=== PATIENT | female | born 1985 | race Caucasian/White ===

== ENCOUNTER 2017-06-20 04:54 | Day surgery (SDC) | payer OTHER ==
[2017-06-13 12:32] VITALS: BMI 24.2
--- NOTE | 2017-06-20 09:24 | HP ---
Satellite [facility] - Chief Complaint Chief Complaint: right wrist mass - Past Medical History Allergies/Adverse Reactions: Allergies Allergy/AdvReac Type Severity Reaction Status Date / Time No Known Allergies Allergy Verified 06/13/17 13:23 ...LMP: 06/07/17 ...LMP Comment: REGULAR - Current Medications Current Medications: Home Medications Medication Instructions Recorded No Known Home Medication 06/13/17 Hydrocodone/Acetaminophen [[place] 1 each PO Q6H PRN #40 tablet MDD 4 06/20/17 5-325 Tablet] Satellite Physical Exam - Physical Examination General Appearance: Well Nourished, Well Developed, Alert & Oriented x3 ENT: Clear Lung: Normal air movement Heart: Regular rate & rhythm Extremities: Other (right wrist- + mass, nvi) Neurological: Intact, Alert, Oriented Satellite Impression/Plan - Impression/Plan Impression: right wrist ganglion cyst Operative Procedure: right wrist ganglion cyst excision Date to be Performed: 06/20/17
[2017-06-20 11:13] VITALS: TEMP 98.3
[2017-06-20] MEDS ORDERED: MIDAZOLAM HCL 2 MG/2 ML SINGLE DOSE VIAL ONE ×2 (12:08)
[2017-06-20] MEDS ORDERED: PROPOFOL 20 ML ONE (12:08)
[2017-06-20] MEDS ORDERED: ceFAZolin SODIUM 1 GM VIAL IVPB ONE (12:15)
[2017-06-20] MEDS ORDERED: ceFAZolin SODIUM 1 GM VIAL ONE (12:16)
[2017-06-20] MEDS ORDERED: LIDOCAINE HCL/PF 2% SDV 5ML VIAL ONE (12:16)
[2017-06-20] MEDS ORDERED: LIDOCAINE HCL 1%, 10 MG/ML (20ML VIAL) IJ ONE ×2 (12:22)
[2017-06-20] MEDS ORDERED: BUPIVACAINE HCL/PF 0.5% (5MG/ML) 10 ML VIAL IJ ONE ×2 (12:22)
[2017-06-20] MEDS ORDERED: DEXAMETHASONE SOD PHOSPHATE 4 MG/1 ML VIAL ONE (12:35)
[2017-06-20] MEDS ORDERED: KETOROLAC TROMETHAMINE 30 MG/1 ML VIAL ONE (12:35)
--- NOTE | 2017-06-20 12:43 | OP ---
Operative Note - Note: Operative Date: 06/20/17 Pre-Operative Diagnosis: mass right hand Operation: excision mass right hand Post-Operative Diagnosis: Same as Pre-op Surgeon: Beau Cheng Anesthesiologist/CULINARY ARTIST: Ashley Bourgeois Anesthesia: General, Local Specimens Removed: mass right hand, and tenosynovium Estimated Blood Loss (mls): 0 Blood Volume Replaced (mls): 0 Fluid Volume Replaced (mls): 500 Operative Report Dictated: Yes
[2017-06-20 15:47] VITALS: BP 125/72; PULSE 68
--- NOTE | 2017-06-21 00:22 | OP ---
DATE OF OPERATION: 06/20/2017 PREOPERATIVE DIAGNOSIS: Mass, right hand. POSTOPERATIVE DIAGNOSIS: Mass, right hand. Likely ganglion cyst. PROCEDURE: Excision mass, right hand. SURGEON: Beau Aguilar M.D. SYSTEMS ADMINISTRATION ANALYST: None. ANESTHESIOLOGIST: Ashley Bourgeois M.D. ANESTHESIA: MAC anesthesia, local injection of 8 mL 0.5% Marcaine, 1% lidocaine mix. DRAINS: None. COMPLICATIONS: None. SPECIMEN: Mass right hand, likely ganglion cyst. BLOOD LOSS: None. BLOOD GIVEN: None. FLUID REPLACEMENT: 500 mL. INDICATION: The patient is a 31-year-old female with a preoperative diagnosis of a mass on the dorsal aspect of her right hand. After understanding the potential risks, complications, alternatives, benefits to surgery versus nonsurgical treatment, the patient elected to pursue this procedure. DESCRIPTION OF PROCEDURE: Patient brought to operating room, peripheral IV placed, IV sedation given, 1 g of IV Ancef was given, MAC anesthesia was induced. Right upper extremity was prepped and draped in the sterile fashion. A longitudinal incision was marked out over a mass on the dorsal aspect of the right hand, taking great care to avoid all crossing neurovascular structures. Then 8 mL 0.5% Marcaine, 1% lidocaine mix was injected in and around the surgical incision. The right upper extremity was elevated, exsanguinated with Esmarch bandage, tourniquet inflated to 250 mmHg. A longitudinal incision was made with the number 15 scalpel blade. Subcutaneous hemostasis achieved with bipolar cautery. Dissection done with a Littler scissors. There was a very superficial mass coming up dorsal through the extensor tendons but its stalk was identified going down to the dorsal wrist capsule between the extensor tendons. An Allis clamp was placed onto the mass. The stalk put under tension and it was decapitated at its base and cauterized. Some tenosynovium was removed as well. The area was copiously irrigated and washed out. I did not feel or see any other abnormal tissue. The deep dermal layer was closed with 4-0 undyed Vicryl. Final skin reapproximation was done with a running subcuticular 4-0 Biosyn. Area was washed and dried, covered with Steri-Strips, 4x4s, fluff between the fingers, Webril and Coban. The tourniquet was taken down after total tourniquet time of 14 minutes. There were no complications during the case. The patient tolerated the procedure well, was brought to the ambulatory recovery in table condition. BEAU AGUILAR M.D. [id number]
--- NOTE | 2017-06-21 16:31 | PATH ---
Surgical Pathology Report Patient Name: DEBRA CASTELLANO [facility]. Rec. #: [id number] /Age/Gender: 1985 (Age: 31) / F Account: [id number] Location: [facility] SURGICAL Taken: 06/20/2017 Received: 06/20/2017 Reported: 06/21/2017 Physicians: Beau Cheng M.D. Specimen(s) Received MASS OF RIGHT HAND Clinical History Mass right hand Final Diagnosis SOFT TISSUE, RIGHT HAND, MASS, EXCISION: BENIGN TENOSYNOVIAL TISSUE WITH CYSTIC SPACE WITHOUT DEFINED LINING AND MYXOID CHANGE CONSISTENT WITH GANGLION CYST. Electronically Signed Urban Boyle M.D. Gross Description Received in formalin labeled "mass right hand" is a 1.5 x 1.0 x 0.3 cm lebron, irregular portion of soft tissue. The specimen is submitted in toto in one cassette. 06/20/201706/20/2017
== END 2017-06-20 15:48 | disposition home or self-care (01) ==
LOC: JASU-SURG 04:54
PROVIDERS: ATTEND Orthopaedic Surgery
PROC: 0LB70ZZ Excision of Right Hand Tendon, Open Approach (ICD-10-PCS; principal; 2017-06-20 12:00)
DX: M67.441 Ganglion, right hand (principal)
CPT/HCPCS: 84703; 88304-TC

== ENCOUNTER 2017-07-21 09:36 | Emergency (ER) | payer OTHER ==
[2017-07-21 09:43] VITALS: BP 131/68; PULSE 84; TEMP 98; BMI 24.9
[2017-07-21] MEDS ORDERED: IBUPROFEN 400 MG TABLET (FP) PO ONE ×2 (11:18→11:20)
--- NOTE | 2017-07-21 11:18 | PDOC ---
History of Present Illness - General Chief Complaint: Laceration Stated Complaint: FOLLOW UP Time Seen by Provider: 07/21/17 10:43 History Source: Patient Exam Limitations: No Limitations - History of Present Illness Initial Comments: 07/21/17 13:28 My Chief Complaint: rt hand open area History of Present Illness: Pt Is a 31-year-old female with no significant medical history except for having surgical repair of ganglion cyst on [address] Cheng to her right dorsal hand and wrist area. Patient reports that a suture line had totally closed approximately 07/09/2017. 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 Patient reports that have been irritating her hand and wrist at suture line. Patient denies any numbness of her hand or wrist or forearm. works here as a oil burner. 07/21/17 13:34 Timing/Duration: getting worse Severity: moderate Associated Symptoms: reports: denies symptoms Past History - Past Medical History Allergies/Adverse Reactions: Allergies Allergy/AdvReac Type Severity Reaction Status Date / Time No Known Allergies Allergy Verified 07/21/17 09:41 Home Medications: Ambulatory Orders Sulfamethoxazole/Trimethoprim [Bactrim DS -] 1 tab PO BID #13 tablet 07/21/17 Anemia: No Asthma: No Cancer: No Cardiac Disorders: No CVA: No COPD: No CHF: No Dementia: No Diabetes: No GI Disorders: No Disorders: No HTN: No Hypercholesterolemia: No Liver Disease: No Seizures: No Thyroid Disease: No Other medical history: none - Surgical History Abdominal Surgery: No Appendectomy: No Cardiac Surgery: No Cholecystectomy: No Lung Surgery: No Neurologic Surgery: No Orthopedic Surgery: No - Psycho/Social/Smoking Cessation Hx Anxiety: No Suicidal Ideation: No Smoking History: Never smoked Have you smoked in the past 12 months: No Number of Cigarettes Smoked Daily: 0 Information on smoking cessation initiated: No Hx Alcohol Use: No Drug/Substance Use Hx: No Substance Use Type: None Hx Substance Use Treatment: No Review of Systems - Review of Systems Able to Perform ROS?: Yes Constitutional: No: Symptoms Reported HEENTM: No: Symptoms Reported Respiratory: No: Symptoms reported Cardiac (ROS): No: Symptoms Reported ABD/GI: No: Symptoms Reported Musculoskeletal: No: Symptoms Reported Integumentary: Yes: Other (rt. dorsal proximal mid hand tender, slightly raised with pustule on operative site drained today with tiny open area ) Neurological: No: Symptoms reported *Physical Exam - Vital Signs Last Vital Signs Temp Pulse Resp BP Pulse Ox 98.0 F 84 18 131/68 100 07/21/17 09:41 07/21/17 09:41 07/21/17 09:41 07/21/17 09:41 07/21/17 09:41 - Physical Exam General Appearance: Yes: Appropriately Dressed Respiratory/Chest: positive: Lungs Clear, Normal Breath Sounds. negative: Chest Tender, Respiratory Distress Cardiovascular: positive: Regular Rhythm, Regular Rate, S1, S2 Comments:: 07/21/17 11:18 radial pulse rt. 2 + Integumentary: positive: Other (scar tissure rt. dorsal proximal hand wrist tiny open area, tender, slightly raised with minimal erythema ) Neurologic: positive: Normal Response, Respond to painful stimul (rt. hand/ wrist ), Responsive, Other (negative tinel, phalen rt. ). negative: Numbness, Sensory Deficit (rt.hand/wrist ) Procedures - Consent Consent obtained: From Patient - Additional Procedures Progress: 07/21/17 13:37 07/21/17 13:38 cleanse area with betadine / NS 0.9 % than applied bandaid Medical Decision Making - Medical Decision Making 07/21/17 13:34 07/21/17 13:35 Pt Is a 31-year-old female with no significant medical history except for having surgical repair of ganglion cyst on 06/20/[address] Cheng to her right dorsal hand and wrist area. Patient reports that a suture line had totally closed approximately 07/09/2017. 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 Patient reports that have been irritating her hand and wrist at suture line. Patient denies any numbness of her hand or wrist or forearm. works here as a oil burner. rt. dorsal hand/wrist open area PLAN: wound C & S bactrim DS 1 tab now than bid for 7 days cleanse area with betadine / NS 0.9 % than applied bandaid follow up with Dr. Cheng on 07/24/17 07/21/17 13:37 *DC/Admit/Observation/Transfer Diagnosis at time of Disposition: Wound, surgical, infected Qualifiers: Encounter type: initial encounter Qualified Code(s): T81.4XXA - Infection following a procedure, initial encounter - Discharge Dispostion Disposition: HOME Condition at time of disposition: Stable - Prescriptions Prescriptions: Sulfamethoxazole/Trimethoprim [Bactrim DS -] 1 tab PO BID #13 tablet - Referrals Referrals: Beau Cheng MD [Staff Physician] - - Patient Instructions Additional Instructions: cleanse wound with antibacterial soap and apply tiny amount of bacitracin ointment cover with dressing during the day and let air out at night Follow up with Dr. Cheng on 07/24/17 Return to emergency room is symptoms worsen fever, increased redness, swelling take ibuprofen as needed as directed by manfacturer patient voiced understanding of discharge instructions and all questions were answered - Post Discharge Activity Work/School Note: Back to Work
[2017-07-21] MEDS ORDERED: SULFAMETHOXAZOLE/TRIMETHOPRIM 800MG/160MG D.S. TABLET PO ONE (11:19)
[2017-07-21] MEDS ORDERED: SULFAMETHOXAZOLE/TRIMETHOPRIM 800MG/160MG D.S. TABLET ONE (11:19)
== END 2017-07-21 11:35 | disposition home or self-care (01) ==
LOC: JERFT 09:36
DX: T81.4XXA Infection following a procedure, initial encounter (principal); B99.8 Other infectious disease; Y83.8 Other surgical procedures as the cause of abnormal reaction of the patient, or of later complication, without mention of misadventure at the time of the procedure; Y92.038 Other place in apartment as the place of occurrence of the external cause
CPT/HCPCS: 87070; 87186; 87205; 99281-25

== ENCOUNTER 2018-05-04 21:28 | Inpatient (IN) | payer OTHER ==
[2018-05-04] MEDS ORDERED: DEXTROSE 5%-LACTATED RINGERS 1,000 ML IV SCH (22:45)
[2018-05-04] MEDS ORDERED: DINOPROSTONE 10 MG VAGINAL SUPPOSITORY VG ONE (23:00)
[2018-05-04 23:11] LABS: BASO % 0.3 % (0-2.0); EOS % 0.6 % (0-4.5); HEMOGLOBIN 11.9 GM/dL (10.7-15.3); LYMPH % 19.5 % (8-40); MCH 30.6 pg (25.7-33.7); MCHC 33.9 g/dl (32.0-36.0); MEAN PLT VOLUME 9.5 fl (7.5-11.1); MONO % 6.9 % (3.8-10.2); NEUT % 72.7 % (42.8-82.8); PLATELET COUNT 182 K/MM3 (134-434); RBC 3.88 M/mm3 (3.60-5.2); RDW 14.9 % (11.6-15.6); WHITE BLOOD COUNT 8.2 K/mm3 (4.0-10.0)
[2018-05-04 23:25] LABS: INR 0.99 (0.82-1.09); PROTHROMBIN TIME (PATIENT) 11.2 SEC (9.7-13.0)
[2018-05-04 23:28] LABS: ACTIVATED PTT 29.2 SECONDS (25.2-36.5)
[2018-05-04 23:32] LABS: ANION GAP 8 (8-16); BLOOD UREA NITROGEN 11 mg/dL (7-18); CALCIUM 8.2 mg/dL (8.5-10.1); CHLORIDE 107 mmol/L (98-107); CO2 24 mmol/L (21-32); CREATININE 0.8 mg/dL (0.55-1.02); GLUCOSE,RANDOM 99 mg/dL (74-106); POTASSIUM 3.7 mmol/L (3.5-5.1); SODIUM 139 mmol/L (136-145)
[2018-05-04 23:35] VITALS: BMI 28.1
--- NOTE | 2018-05-05 02:10 | HP ---
Past Medical History - Admission Chief Complaint: 32 y/o female lmp 08/04/17 ga 39.0 weeks presented to labor and delivery c/o spontaneous rupture of membranes History of Present Illness: her anitepartum course has been unremarkable History Source: Patient Limitations to Obtaining History: No Limitations - Past Medical History MANAGER ESTATE: No: Alzheimer's, CVA, Dementia, Migraine, Multiple Sclerosis, Peripheral Neuropathy, Parkinson's, Seizure, Syncope, TIA, Vertigo, Other Cardiovascular: No: AFIB, Aneurysm, Aortic Insufficiency, Aortic Stenosis, CAD, CHF, Deep Vein Thrombosis, HTN, Hyperlipdemia, MT, Mitral Insufficiency, Mitral Stenosis, Murmur, Pulmonary Hypertension, Other Pulmonary: No: Asthma, Bronchitis, Cancer, COPD, O2 Dependent, Pneumonia, Previously Intubated, Pulmonary Embolus, Pulmonary Fibrosis, Sleep Apnea, Other Gastrointestinal: No: Ascites, Cancer, Constipation, Crohn's Disease, Diverticulitis, Diverticulosis, Esophageal Varices, Gastritis, GERD, GI Bleed, Hemorrhoids, Hiatal Hernia, Inflamatory Bowel Disease, Irritable Bowel Disease, Pancreatitis, Peptic Ulcer Disease, Ulcerative Colitis, Other Hepatobiliary: No: Cirrhosis, Cholelithiasis, Cholecystitis, Choledocholithiasis , Hepatitis A, Hepatitis B, Hepatitis C, Other Renal/: No: Renal Failure, Renal Inusuff, BPH, Cancer, Hematuria, Hemodialysis , Neurogenic Bladder, Renal Calculi, UTI, Other Reproductive: No: Ectopic , Endometriosis, Fibroids, PID, Polycystic Ovary Syndrome, Postmenopausal, Other ...: 1 ...Para: 0 ...Term: 0 ...: 0 ...Spon : 0 ...Induced : 0 ...Multiple Gestation: 0 ...LMP: 08/04/17 ... Weeks Gestation by Dates: 39.0 ...EDC by Dates: 05/11/18 ...EDC by Sono: 05/11/18 Heme/Onc: No: Anemia, B12 Deficiency, Bleeding Disorder, Cancer, Current Chemotherapy, Current Radiation Therapy, Hemochromatosis, Hypercoaguable State, Myeloproliferative Synd, Sickle Cell Disease, Sickle Cell Trait, Thrombocytopenia, Other Infectious Disease: No: AIDS, C-Diff, Herpes Zoster, HIV, MRSA, STD's, Tuberculosis, VREF, Other Psych: No: Addictions, Anxiety, Bipolar, Depression, Panic, Psychosis, Schizophrenia, Other Musculoskeletal: No: Bursitis, Chronic low back pain, Hemiparesis, Hemiplegia, Osteoarthritis, Paraplegia, Other Rheumatology: No: Fibromyalgia, Gout, Lupus, Rheumatoid Arthritis, Sarcoidosis, Vasculitis, Other ENT: No: Allergic Rhinitis, Sinusitis, Other Endocrine: No: [place]'s Disease, Ning's Disease, Diabetes Insipidus, Diabetes Mellitus, Hyperparathyroidism, Hyperthyroidism, Hypothyroidism, Osteopenia, SIADH, Other Dermatology: No: Basal Cell, Cellulitis, Eczema, Melanoma, Psoriasis, Squamous Cell, Other - Past Surgical History Past Surgical History: No: None, AAA Repair, AICD, Amputation, Appendectomy, Arthrosocopy, AV Fistula/Graft, Bariatric Surgery, Breast Biopsy, Bypass, CABG, Carotid Endarterectomy, Cataract Removal, Cholecystectomy, Colectomy, Colonoscopy, Colostomy, Craniotomy, , Cystectomy, Hernia Repair, Hysterectomy, Ileal Conduit, Ileosotomy, Joint Replacement, Kidney Transplant, Laminectomy, Liver Transplant, Mastectomy, Nephrectomy, Oopherectomy, Orchiectomy, Permanent Pacemaker, Prostatectomy, Splenectomy, Stent, Thoracotomy , TURP, Tonsillectomy, Tubal Ligation, Upper Endoscopy, Valve Replacement, Vasectomy, Vein Stripping/Ligation Hx Myomectomy: No Hx Transabdominal Cerclage: No - Smoking History Smoking history: Never smoked Have you smoked in the past 12 months: No Aproximately how many cigarettes per day: 0 - Alcohol/Substance Use Hx Alcohol Use: No Home Medications - Allergies Allergies/Adverse Reactions: Allergies Allergy/AdvReac Type Severity Reaction Status Date / Time No Known Allergies Allergy Verified 07/21/17 09:41 - Home Medications Home Medications: Ambulatory Orders Pnv 29-1 Tablet 1 tab PO DAILY 05/04/18 Family Disease History - Family Disease History Family History: Unremarkable Review of Systems - Review of Systems Constitutional: denies: No Symptoms, Chills, Diaphoresis, Fever, Lethargy, Loss of Appetite, Malaise, Night Sweats, Unintentional Wgt. Loss, Weakness, Other Eyes: denies: No Symptoms, Blind Spots, Blurred Vision, Double Vision, Eye Pain , Floaters, Photophobia, Recent Change in Vision, Other HENT: denies: No Symptoms, Difficult Swallowing, Ear Discharge, Ear Pain, Epistaxis, Gingival Bleeding, Hearing Loss, Mouth Swelling, Nasal Congestion, Ocular Prosthesis, Throat Pain, Toothache, Ringing in Ears, Other Neck: denies: No Symptoms, Decreased ROM, Lumps, Pain on Movement, Stiffness, Swollen Glands, Tenderness, Other Cardiovascular: denies: No Symptoms, Chest Pain, Edema, Palpitations, Shortness of Breath, Other Respiratory: denies: No Symptoms, Cough, Exercise Intolerance, Hemoptysis, Orthopnea, PND, Snoring, SOB, SOB on Exertion, Wheezing, Other Gastrointestinal: denies: No Symptoms, Abdominal Pain, Bloating, Constipation, Diarrhea, Dysphagia, Indigestion, Melena, Nausea, Rectal Bleeding, Vomiting, Vomiting Blood, Other Genitourinary: denies: No Symptoms, Burning, Discharge, Dysuria, Flank Pain, Frequency, Hematuria, Incontinence, Lesions, Menses, Pain, Testicular Mass, Testicular Pain, Testicular Swelling, Urgency, Vaginal Bleeding, Other Breasts: denies: No Symptoms Reported, See HPI, Breast Implants, Discharge from Nipple, Lumps, Pain, Skin Changes, Other Musculoskeletal: denies: No Symptoms, Back Pain, Crepitus, Decreased ROM, Extremity Pain, Joint Pain, Joint Swelling, Muscle Pain, Muscle Cramps, Muscle Weakness, Other Integumentary: denies: No Symptoms, Blister, Bruising, Change in Color, Eczema, Erythema, Incision, Lesions, Lump, Pallor, Pruritis, Rash, Wound, Other Endocrine: denies: No Symptoms, Excessive Sweating, Flushing, Increased Hunger, Increased Thirst, Intolerance to Cold, Intolerance to Heat, Unexplained Weight Gain, Unexplained Weight Loss, Other Hematology/Lymphatic: denies: No Symptoms, Easily Bruised, Excessive Bleeding, Swollen Glands, Other Psychiatric: denies: No Symptoms, Altered Sleep Pattern, Anxiety, Depression, Hallucinations, Panic, Paranoia, Suicidal, Other Physical Exam - Maternity Vital Signs: Vital Signs Temperature 98.3 F 05/05/18 00:00 Pulse Rate 70 05/05/18 00:00 Respiratory Rate 20 05/05/18 00:00 Blood Pressure 118/80 05/05/18 00:00 O2 Sat by Pulse Oximetry (%) Constitutional: Yes: Well Nourished, No Distress, Calm Eyes: Yes: WNL, Conjunctiva Clear HENT: Yes: WNL, Normocephalic Neck: Yes: WNL, Supple Cardiovascular: Yes: WNL, Regular Rate and Rhythm Lungs: Clear to auscultation Breast(s): Yes: WNL - Abdominal Exam/OB Number of Fetuses: Single Presentation: Vertex Contractions: Yes Regularity: Regular Intensity: Moderate Monitor Mode: External Heart Rate Location: [facility] Category: I Accelerations: Uniform Decelerations: None - Vaginal Exam/OB Vaginal Bleediing: No Speculum Exam: No Dilatation (cm): ft Effacement (%): 50% Amniotic Membrane Status: Ruptured Amniotic Fluid: Yes: Clear Presentation: Vertex/Position Station: -3 - Physical Exam Musculoskeletal: Yes: WNL Extremities: Yes: WNL Integumentary: Yes: WNL Deep Tendon Reflex Grade: Normal +2 ...Motor Strength: WNL Psychiatric: Yes: WNL - Labs Lab Results: CBC, BMP 05/04/18 22:50 05/04/18 22:50 Assessment/Plan iup at [facility] with ruptured amniotic membranes plan admission to the labor floor and assist with labo cervidil inserted continue maternal monitoring
[2018-05-05] MEDS ORDERED: ELECTROLYTE-148 SOLN 1,000 ML IV SCH (05:00)
[2018-05-05] MEDS ORDERED: FENTANYL/BUPIVACAINE/NS/PF - PCEA - 50 ML DISP.SYRIN EP ONE ×2 (05:08→09:20)
[2018-05-05] MEDS ORDERED: NALOXONE HCL 0.4 MG/ML VIAL IVPUSH PRN (05:41)
[2018-05-05] MEDS ORDERED: FENTANYL/BUPIVACAINE/NS/PF - PCEA - 50 ML DISP.SYRIN EP SCH (05:45)
[2018-05-05] MEDS ORDERED: OXYTOCIN 30 UNITS in 0.9% NS 30 UNIT/500 ML INFUS.BAG IVPB ONE (05:54)
[2018-05-05] MEDS ORDERED: OXYTOCIN 30 UNITS in 0.9% NS 30 UNIT/500 ML INFUS.BAG IVPB SCH (06:00)
[2018-05-05] MEDS ORDERED: BUPIVACAINE HCL/PF 0.25% (2.5MG/ML) 10 ML VIAL ONE (08:55)
[2018-05-05] MEDS: PRENATAL VITAMINS W/ FOLIC ACID TABLET (FP) PO SCH (10:14)
[2018-05-05] MEDS ORDERED: OXYTOCIN 20 UNITS in 0.9% NS 20 UNIT/1,000 ML INFUS.BAG IV ONE (10:29)
--- NOTE | 2018-05-05 10:35 | PN ---
Ante-Partal Exam - Subjective Subjective: Pt doing well, no complaints. Comfortable with epidural. Vital Signs: Vital Signs Temperature 98.8 F 05/05/18 09:00 Pulse Rate 79 05/05/18 10:00 Respiratory Rate 05/05/18 10:00 Blood Pressure 111/71 05/05/18 10:00 O2 Sat by Pulse Oximetry (%) 100 05/05/18 10:00 Bleeding: No Headache: No Visual changes: No Right upper quadrant pain: No Pain (scale 1-10): 0 - Contractions Contractions: Yes Regularity: Regular Intensity: Strong - Exam during Labor Heart Rate: 150 Variability: Moderate Category: I Monitor Accelerations: Present Monitor Decelerations: Early Exam: Vaginal Dilatation (cm): 10 Effacement (%): 100 Amniotic Membrane Status: Ruptured Presentation: Vertex Station: +1 - Assessment/Plan Assessment/Plan: active labor, augmented with pitocin fully dilated to begin pushing
--- NOTE | 2018-05-05 11:18 | PN ---
Delivery - Delivery Vaginal Delivery: No Problems Type of Anesthesia: Epidural Episiotomy/Laceration: 1st degree EBL (cc): 250 Delivery, Single - Stages of Labor Date of Delivery: 05/05/18 Time of Delivery: 11:02 Date Placenta Delivered: 05/05/18 Time Placenta Delivered: 11:05 Placenta: Yes: Spontaneous - Condition of Lottery Clerk/Parts Room Clerk Present: No Gender: Male Position: Left, OA - 1 Minute Total Score: 9 5 Minutes Total Score: 9 - Feeding Plan Initial Plan: Exclusive throughout hospitalization Remarks - Remarks Remarks: 32 y/o with normal from MAREK position tight nuchal cord noted after delivery of head - clamped and cut at perineum anterior shoulder (right) delivered with ease along with remainder of Apgars 9/9 mouth and nose bulb suctioned routine resuscitation measures 1st degree laceration repaired with 2-0 chromic sponge and needle count correct mom stable baby to well baby nursery
[2018-05-05] MEDS ORDERED: OXYTOCIN 20 UNITS in 0.9% NS 20 UNIT/1,000 ML INFUS.BAG IV SCH ×2 (13:15→13:45)
[2018-05-05] MEDS ORDERED: IBUPROFEN 600 MG TABLET (FP) PO PRN (13:27)
[2018-05-05] MEDS ORDERED: WITCH HAZEL 50% (TUCKS) 40 PAD/JAR PAD TP PRN (13:27)
[2018-05-05] MEDS ORDERED: BENZOCAINE 20% 57 GM BOTTLE TP PRN (13:27)
[2018-05-05] MEDS ORDERED: BENZOCAINE 28 GM HEMORRHOIDAL OINTMENT TP PRN (13:27)
[2018-05-05] MEDS ORDERED: BISACODYL 10 MG SUPP.RECT RC PRN (13:27)
[2018-05-05] MEDS ORDERED: ACETAMINOPHEN 325 MG TABLET (FP) PO PRN (13:27)
[2018-05-05] MEDS ORDERED: METHYLERGONOVINE MALEATE 0.2 MG/1 ML AMP IM PRN (13:27)
[2018-05-06 05:34] LABS: BASO % 0.3 % (0-2.0); EOS % 0.9 % (0-4.5); HEMATOCRIT 33.2 % (32.4-45.2); HEMOGLOBIN 11.3 GM/dL (10.7-15.3); LYMPH % 17.8 % (8-40); MCH 30.8 pg (25.7-33.7); MCHC 34.1 g/dl (32.0-36.0); MEAN CELL VOLUME 90.3 fl (80-96); MEAN PLT VOLUME 9.2 fl (7.5-11.1); MONO % 5.3 % (3.8-10.2); NEUT % 75.7 % (42.8-82.8); PLATELET COUNT 149 K/MM3 (134-434); RBC 3.68 M/mm3 (3.60-5.2); RDW 15.3 % (11.6-15.6); WHITE BLOOD COUNT 10.5 K/mm3 (4.0-10.0)
--- NOTE | 2018-05-06 08:19 | PN ---
Post Progress Note - Subjective Subjective: 32 yo Para 1 status post vaginal delivery, seen and evaluated. Doing well. Post Day: 1 Type of Delivery: Vital Signs: Vital Signs Temperature 97.8 F 05/06/18 07:58 Pulse Rate 68 05/06/18 07:58 Respiratory Rate 20 05/06/18 07:58 Blood Pressure 110/68 05/06/18 07:58 O2 Sat by Pulse Oximetry (%) 99 05/05/18 11:50 Breast Exam: Yes: Soft Uterus: Yes: Fundus Firm Abdomen/GI: Yes: Abdomen soft Lochia: Yes: Rubra Lochia, amount: Moderate Extremities: Yes: Calves non-tender Activity: Ambulating - Labs Labs: CBC WBC 10.5 K/mm3 (4.0-10.0) H 05/06/18 05:20 RBC 3.68 M/mm3 (3.60-5.2) 05/06/18 05:20 Hgb 11.3 GM/dL (10.7-15.3) 05/06/18 05:20 Hct 33.2 % (32.4-45.2) 05/06/18 05:20 MCV 90.3 fl (80-96) 05/06/18 05:20 MCH 30.8 pg (25.7-33.7) 05/06/18 05:20 MCHC 34.1 g/dl (32.0-36.0) 05/06/18 05:20 RDW 15.3 % (11.6-15.6) 05/06/18 05:20 Plt Count 149 K/MM3 (134-434) 05/06/18 05:20 MPV 9.2 fl (7.5-11.1) 05/06/18 05:20 Absolute Neuts (auto) 8.0 # 05/06/18 05:20 Neutrophils % 75.7 % (42.8-82.8) 05/06/18 05:20 Lymphocytes % 17.8 % (8-40) 05/06/18 05:20 Monocytes % 5.3 % (3.8-10.2) 05/06/18 05:20 Eosinophils % 0.9 % (0-4.5) 05/06/18 05:20 Basophils % 0.3 % (0-2.0) 05/06/18 05:20 Nucleated RBC % 0 % (0-0) 05/06/18 05:20 Problem List - Problems (1) Status post vaginal delivery Code(s): HMP9852 - Assessment/Plan Status post vaginal delivery Stable Continue routine care
[2018-05-06] MEDS: PRENATAL VITAMINS W/ FOLIC ACID TABLET (FP) PO SCH (09:53)
[2018-05-06] MEDS ORDERED: DIPHTH,PERTUSS(ACELL),TET 0.5 ML DISP.SYRIN IM ONE (10:00)
[2018-05-06] MEDS ORDERED: SENNOSIDES/DOCUSATE COMBO (SENNA PLUS) TABLET (UD) PO PRN (13:27)
[2018-05-07 08:08] VITALS: BP 121/71; PULSE 71; TEMP 98.7
[2018-05-07] MEDS: PRENATAL VITAMINS W/ FOLIC ACID TABLET (FP) PO SCH (09:32)
--- NOTE | 2018-05-07 10:36 | DS ---
Physical Exam-OPERATIONS ASSISTANT Vital Signs: Vital Signs Temperature 98.7 F 05/07/18 08:06 Pulse Rate 71 05/07/18 08:06 Respiratory Rate 18 05/07/18 08:06 Blood Pressure 121/71 05/07/18 08:06 O2 Sat by Pulse Oximetry (%) 99 05/05/18 11:50 Labs: CBC, BMP 05/06/18 05:20 05/04/18 22:50 Delivery - Delivery Vaginal Delivery: No Problems Type of Anesthesia: Epidural Episiotomy/Laceration: 1st degree EBL (cc): 250 Delivery, Single - Stages of Labor Date 1st Stage Initiatied: 05/05/18 Time 1st Stage Initiated: 02:00 Date 2nd Stage Initiated: 05/05/18 Time 2nd Stage Initiated: 10:28 Date of Delivery: 05/05/18 Time of Delivery: 11:02 Time Placenta Delivered: 11:05 Placenta: Yes: Spontaneous - Condition of Infant Radiology Special Procedure Tech/Motor Analyst Present: No Gender: Male Weight: 6 lb 9 oz Position: Left, OA Total Hours ROM (Hrs/Mins): 14 hours 5 minutes - 1 Minute Total Score: 9 5 Minutes Total Score: 9 - Feeding Plan Initial Plan: Exclusive throughout hospitalization Discharge Summary Reason For Visit: LABOR Current Active Problems Status post vaginal delivery (Acute) Procedures: Principal: Normal Hospital Course: PT admitted on 05/05 in active labor, underwent normal on 05/05. Pt had unremarkable post recovery and was discharged home in stable condition on post day 2. - Instructions Referrals: Cheli Loving MD [Staff Physician] - - Home Medications Comprehensive Discharge Medication List: Ambulatory Orders Pnv 29-1 Tablet 1 tab PO DAILY 05/04/18
== END 2018-05-07 11:40 | disposition home or self-care (01) | DRG 775 ==
LOC: JLDR 21:28 → J3W 05-05 13:30
PROVIDERS: ADMIT Obstetrics & Gynecology; ATTEND Obstetrics & Gynecology
PROC: 0HQ9XZZ Repair Perineum Skin, External Approach (ICD-10-PCS; principal; 2018-05-05)
PROC: 10E0XZZ Delivery of Products of Conception, External Approach (ICD-10-PCS; 2018-05-05)
DX: O69.1XX0 Labor and delivery complicated by cord around neck, with compression, not applicable or unspecified (principal); O70.0 First degree perineal laceration during delivery; Z3A.39 39 weeks gestation of pregnancy; Z37.0 Single live birth
CPT/HCPCS: 36415; 59409; 80048; 85025; 85610; 85730; 86593; 86850; 86900; 86901; 87389; 90715

== ENCOUNTER 2018-12-08 08:16 | Emergency (ER) | payer OTHER ==
[2018-12-08 08:32] VITALS: BP 128/78; PULSE 92; TEMP 98; BMI 24.9
[2018-12-08] MEDS ORDERED: NEOMYCIN/POLYMYXN/HC OTIC SUSPENSION 10 ML BOTTLE AS ONE (08:49)
--- NOTE | 2018-12-08 08:53 | PDOC ---
History of Present Illness - General Chief Complaint: Ear Problem Stated Complaint: COLD SYMPTOMS Time Seen by Provider: 12/08/18 08:43 History Source: Patient Exam Limitations: No Limitations - History of Present Illness Initial Comments: 12/08/18 08:50 comImplants of cough, congestion, and worsening pain to her left ear. States last night became progressively worse and now has a needed hearing from same. Timing/Duration: 24 hours Severity: moderate Associated Symptoms: reports: cough, fever/chills, malaise Past History - Travel Traveled outside of the country in the last 30 days: No Close contact w/someone who was outside of country & ill: No - Past Medical History Allergies/Adverse Reactions: Allergies Allergy/AdvReac Type Severity Reaction Status Date / Time No Known Allergies Allergy Verified 12/08/18 08:29 Home Medications: Ambulatory Orders NK [No Known Home Medication] 12/08/18 Anemia: No Asthma: No Cancer: No Cardiac Disorders: No CVA: No COPD: No CHF: No Dementia: No Diabetes: No GI Disorders: No Disorders: No HTN: No Hypercholesterolemia: No Liver Disease: No Seizures: No Thyroid Disease: No - Surgical History Abdominal Surgery: No Appendectomy: No Cardiac Surgery: No Cholecystectomy: No Lung Surgery: No Neurologic Surgery: No Orthopedic Surgery: No - Suicide/Smoking/Psychosocial Hx Smoking History: Never smoked Have you smoked in the past 12 months: No Number of Cigarettes Smoked Daily: 0 Hx Alcohol Use: No Drug/Substance Use Hx: No Substance Use Type: None Hx Substance Use Treatment: No Review of Systems - Review of Systems Able to Perform ROS?: Yes Is the patient limited [place]anian proficient: Yes Constitutional: Yes: Symptoms Reported, See HPI, Chills, Fever, Loss of Appetite , Malaise HEENTM: Yes: Symptoms Reported, See HPI, Ear Pain, Nose Pain, Nose Congestion Respiratory: Yes: Symptoms reported, See HPI, Cough All Other Systems: Reviewed and Negative *Physical Exam - Vital Signs Last Vital Signs Temp Pulse Resp BP Pulse Ox 98 F 92 H 18 128/78 100 12/08/18 08:29 12/08/18 08:29 12/08/18 08:29 12/08/18 08:29 12/08/18 08:29 - Physical Exam General Appearance: Yes: Nourished, Appropriately Dressed, Apparent Distress HEENT: positive: DEAJH, Nasal Congestion, Rhinorrhea. negative: TMs Normal ( left ear bulging and poorly visualized landmarks, no drainage noted right ear congested but landmarks intact), Pharyngeal Erythema, Tonsillar Exudate Neck: positive: Supple. negative: Tender Respiratory/Chest: positive: Lungs Clear Gastrointestinal/Abdominal: positive: Normal Bowel Sounds, Soft. negative: Tender Musculoskeletal: positive: Normal Inspection Integumentary: positive: Normal Color, Dry, Warm Neurologic: positive: equipment tester II-XII NML intact, Fully Oriented, Alert, Normal Mood/ Affect, Normal Response, Motor Strength 5/5 Moderate Sedation - Procedure Monitoring Vital Signs: Procedure Monitoring Vital Signs Temperature 98 F 12/08/18 08:29 Pulse Rate 92 H 12/08/18 08:29 Respiratory Rate 18 12/08/18 08:29 Blood Pressure 128/78 12/08/18 08:29 O2 Sat by Pulse Oximetry (%) 100 12/08/18 08:29 *DC/Admit/Observation/Transfer Diagnosis at time of Disposition: Otitis media Qualifiers: Otitis media type: serous Chronicity: acute Laterality: right Recurrence: non- recurrent Qualified Code(s): H65.01 - Acute serous otitis media, right ear - Discharge Dispostion Disposition: HOME Condition at time of disposition: Stable Decision to Admit order: No - Referrals Referrals: Pop Rodgers MD [Primary Care Provider] - - Patient Instructions Printed Discharge Instructions: Ear Infections (Middle Ear) (Alternative Therapy) Additional Instructions: Rest, lots of fluids; water, teas, soups Hot wet soaks to ear/hot packs may help relieve some pain May use [id number] anesthetic drops to ears to help relieve some pain Avoid getting water in ear, may use alcohol drops to help dry up any water retained in ears Severe using earplugs when swimming to avoid any water retention Continue ibuprofen or Tylenol for pain and fevers Cortisporin otic solution 3-5 drops 3 times a day for 5 days followup with private physician / ENT doctor in 2-3 days Return to emergency department or see private physician immediately for swelling , redness, from ears, or fevers, - Post Discharge Activity Forms/Work/School Notes: Back to Work
[2018-12-08] MEDS ORDERED: NEOMYCIN/POLYMYXN/HC OTIC SOLUTION 10 ML BOTTLE ONE (08:54)
== END 2018-12-08 09:11 | disposition home or self-care (01) ==
LOC: JER 08:16 → JERFT 08:16
DX: H65.03 Acute serous otitis media, bilateral (principal)
CPT/HCPCS: 99281-25

== ENCOUNTER 2019-07-08 19:51 | Emergency (ER) | payer OTHER ==
[2019-07-08 20:07] VITALS: BP 113/73; PULSE 85; TEMP 98.3; BMI 24.9
--- NOTE | 2019-07-08 20:35 | PDOC ---
History of Present Illness - General Chief Complaint: Pain Stated Complaint: L ARM PAIN/FALL Time Seen by Provider: 07/08/19 20:34 History Source: Patient Exam Limitations: No Limitations - History of Present Illness Initial Comments: 07/08/19 21:09 Chief complaint: Injury to arm Patient is a healthy 33-year-old female who states she slipped and fell, injuring her left forearm. She denies any other injuries, no head injury, this was a mechanical fall. GENERAL/CONSTITUTIONAL: No fever, weakness. dizziness HEAD, EYES, EARS, NOSE AND THROAT: No change in vision. No ear pain or discharge. No sore throat. CARDIOVASCULAR: No chest pain RESPIRATORY: No shortness of breath or cough GASTROINTESTINAL: No pain, nausea, vomiting, diarrhea or constipation GENITOURINARY: No dysuria MUSCULOSKELETAL: No neck or back pain SKIN: No rash NEUROLOGIC: No headache, vertigo, loss of consciousness, or loss of sensation. GENERAL: The patient is awake, alert, and fully oriented, in no acute distress. HEAD: Normal with no signs of trauma. EYES: Pupils equal, round and reactive to light, sclera anicteric, conjunctiva clear. ENT: pharynx: no erythema, no exudate, uvula midline NECK: supple CHEST: clear, nontender, rr EXTREMITIES: Forearm with 4 cm hematoma to the proximal her side, no deformity, full range of motion, neurovascular intact. Rest of extremities, normal range of motion, no edema. NEUROLOGICAL: Normal speech, normal gait. SKIN: Warm, Dry Past History - Past Medical History Allergies/Adverse Reactions: Allergies Allergy/AdvReac Type Severity Reaction Status Date / Time No Known Allergies Allergy Verified 12/08/18 08:29 Home Medications: Ambulatory Orders NK [No Known Home Medication] 12/08/18 Anemia: No Asthma: No Cancer: No Cardiac Disorders: No CVA: No COPD: No CHF: No Dementia: No Diabetes: No GI Disorders: No Disorders: No HTN: No Hypercholesterolemia: No Liver Disease: No Seizures: No Thyroid Disease: No - Surgical History Abdominal Surgery: No Appendectomy: No Cardiac Surgery: No Cholecystectomy: No Lung Surgery: No Neurologic Surgery: No Orthopedic Surgery: No - Suicide/Smoking/Psychosocial Hx Smoking History: Never smoked Have you smoked in the past 12 months: No Number of Cigarettes Smoked Daily: 0 Hx Alcohol Use: No Drug/Substance Use Hx: No Substance Use Type: None Hx Substance Use Treatment: No *Physical Exam - Vital Signs Last Vital Signs Temp Pulse Resp BP Pulse Ox 98.3 F 85 20 113/73 100 07/08/19 20:03 07/08/19 20:03 07/08/19 20:03 07/08/19 20:03 07/08/19 20:03 Medical Decision Making - Medical Decision Making 07/08/19 21:12 Healthy 33-year-old female with mechanical fall, injured her left forearm with hematoma proximal aspect, some pain to the elbow, will get x-rays of both, patient took Tylenol, would like Motrin. X-rays: No fracture or acute findings Discussed issues, findings, results, applicable medications and treatments and follow-up. All these were understood and all questions were answered *DC/Admit/Observation/Transfer Diagnosis at time of Disposition: Contusion of arm, left Qualifiers: Encounter type: initial encounter Qualified Code(s): S40.022A - Contusion of left upper arm, initial encounter - Discharge Dispostion Disposition: HOME Condition at time of disposition: Stable Decision to Admit order: No - Referrals Referrals: Pop Rodgers MD [Primary Care Provider] - Vaughn Lopez MD [Staff Physician] - - Patient Instructions Additional Instructions: Elevate, wear cresencio bandage for compression You can apply ice for 20 minutes every 2 hours for the next 2 days Motrin 600 mg every 6 hours for pain. The orthopedist if not resolving after the next 3-4 days - Post Discharge Activity
[2019-07-08] MEDS ORDERED: IBUPROFEN 600 MG TABLET (FP) PO ONE ×2 (20:37→20:42)
== END 2019-07-08 21:08 | disposition home or self-care (01) ==
LOC: JERFT 19:51
DX: S50.12XA Contusion of left forearm, initial encounter (principal); W01.0XXA Fall on same level from slipping, tripping and stumbling without subsequent striking against object, initial encounter; Y93.E1 Activity, personal bathing and showering; Y92.002 Bathroom of unspecified non-institutional (private) residence as the place of occurrence of the external cause
CPT/HCPCS: 73070-TC-LT-FY; 73090-TC-LT-FY; 99282-25

== ENCOUNTER 2021-08-18 11:40 | Emergency (ER) | payer OTHER ==
[2021-08-18 11:50] VITALS: BP 133/95; PULSE 85; TEMP 98.7; BMI 27.4
== END 2021-08-18 12:17 | disposition home or self-care (01) ==
LOC: FER 11:40
DX: H92.02 Otalgia, left ear (principal)
CPT/HCPCS: 99282-25

== ENCOUNTER 2022-08-26 21:10 | Emergency (ER) | payer OTHER ==
[2022-08-26 21:22] VITALS: BP 116/83; PULSE 86; RESP 16; TEMP 99.9; BMI 27.7
[2022-08-26] MEDS ORDERED: DIPHTH,PERTUSS(ACELL),TET 0.5 ML DISP.SYRIN IM ONE (21:22)
[2022-08-26] MEDS ORDERED: CEPHALEXIN MONOHYDRATE 500 MG CAPSULE (UD) PO ONE (21:22)
[2022-08-26] MEDS ORDERED: CEPHALEXIN MONOHYDRATE 500 MG CAPSULE (UD) ONE (21:27)
== END 2022-08-26 21:34 | disposition home or self-care (01) ==
LOC: FER 21:10
DX: S61.307A Unspecified open wound of left little finger with damage to nail, initial encounter (principal); W23.1XXA Caught, crushed, jammed, or pinched between stationary objects, initial encounter
CPT/HCPCS: 99283-25